=== PATIENT | male | born 1955 | race Caucasian/White ===

== ENCOUNTER 2019-01-14 18:28 | Emergency (ER) | payer MEDICARE, MEDICAID ==
[~2019-01-14] VITALS: Ht 170.2 cm; Wt 86.8 kg
[~2019-01-14 18:28] MED LIST: HCTZ25T PO; LEVE100S NG; NO HOME MEDS; SULF-117 PO
[2019-01-14 18:30] VITALS: BP 180/86
--- NOTE | 2019-01-14 19:18 | NUR ---
Patient sitting comfortably on gurholstein, lab was in to get blood for testing.
[2019-01-14 19:23] LABS: BASOPHILS # (AUTO) 0.1 X10'3 (0-0.2); EOSINOPHILS # (AUTO) 0.2 X10'3 (0-0.9); MONOCYTES # (AUTO) 0.9 X10'3 (0-0.9); NEUTROPHILS # (AUTO) 9.4 X10'3 (1.8-7.7)
[2019-01-14 19:25] LABS: BASOPHILS % (AUTO) 0.4 % (0-1); EOSINOPHILS % (AUTO) 1.6 % (0-6); HEMOGLOBIN 15.1 g/dl (14.0-17.9); LYMPHOCYTES # (AUTO) 2.8 X10'3 (1.1-4.8); LYMPHOCYTES % (AUTO) 21.2 % (21-51); MEAN CORPUSCULAR HEMOGLOBIN 28.3 PG (27.0-31.0); MEAN CORPUSCULAR HGB CONC 33.5 g/dL (33.0-36.5); MEAN CORPUSCULAR VOLUME 84.4 FL (78-98); MONOCYTES % (AUTO) 6.6 % (2-12); NEUTROPHILS % (AUTO) 70.2 % (42-75); PLATELET COUNT 182 X10'3 (140-440); RED BLOOD COUNT 5.33 X10'6 (4.70-6.10); RED CELL DISTRIBUTION WIDTH 14.3 % (11.5-14.5); WHITE BLOOD COUNT 13.4 X10'3 (4.5-11.0)
[2019-01-14 19:38] LABS: ALBUMIN 3.9 G/DL (3.4-5.0); ANION GAP 6 (8-16); BLOOD UREA NITROGEN 22 MG/DL (7-18); BUN/CREATININE RATIO 22.2 (5.4-32.0); CALCIUM 9.1 MG/DL (8.5-10.1); CHLORIDE 106 MMOL/L (99-107); CREATININE 0.99 MG/DL (0.60-1.10); GLUCOSE 94 MG/DL (70-104); POTASSIUM 4.2 MMOL/L (3.5-5.1); SODIUM 141 MMOL/L (135-145); TOTAL CARBON DIOXIDE 29.1 MMOL/L (24-32); eGFR 76 ML/MIN
[2019-01-14] MEDS ORDERED: ibuprofen tablet 400 MG TABLET PO ONE (19:40)
[2019-01-14] MEDS ORDERED: CEPH-572 PO (19:47)
[2019-01-14 19:50] LABS: PLATELET ESTIMATE NORMAL
[2019-01-14 19:51] LABS: GIANT PLATELET FEW; LARGE PLATELETS FEW
== END 2019-01-14 19:58 | disposition home or self-care (01) ==
LOC: ER 18:29
DX: S60.022A Contusion of left index finger without damage to nail, initial encounter (principal); Z79.899 Other long term (current) drug therapy; X58.XXXA Exposure to other specified factors, initial encounter; Y93.89 Activity, other specified; Y92.89 Other specified places as the place of occurrence of the external cause; Y99.8 Other external cause status
CPT/HCPCS: 36415; 80048; 84550; 85025; 99283